=== PATIENT | female | born 1980 | race African-American/Black ===

== ENCOUNTER 2017-03-26 10:17 | Emergency (ER) | payer OTHER ==
[~2017-03-26] VITALS: Ht 182.9 cm; Wt 143.6 kg
[~2017-03-26 10:17] MED LIST: ADV250 IH; ALBU8HFA IH; BECL8.7A6 IH; BUPR100 PO; HYDR25TA PO; QUET50XR PO; TIOT185 IH; VITAD1000 PO
[2017-03-26] MEDS ORDERED: ACETAMINOPHEN/CODEINE 300-30 MG TABLET PO ONE (11:30)
[2017-03-26 13:23] VITALS: BP 138/78
== END 2017-03-26 13:50 | disposition home or self-care (01) ==
LOC: EMS 10:19
DX: S93.402A Sprain of unspecified ligament of left ankle, initial encounter (principal); M25.562 Pain in left knee; F32.9 Major depressive disorder, single episode, unspecified; I10 Essential (primary) hypertension; Z88.8 Allergy status to other drugs, medicaments and biological substances; W18.39XA Other fall on same level, initial encounter; Y93.01 Activity, walking, marching and hiking; Y92.488 Other paved roadways as the place of occurrence of the external cause; Y99.9 Unspecified external cause status
CPT/HCPCS: 99284